=== PATIENT | female | born 1960 ===

== ENCOUNTER 2016-12-01 13:25 | Emergency (ER) | payer OTHER ==
[2016-12-01 13:39] VITALS: BP 137/63
--- NOTE | 2016-12-01 13:52 | UC ---
Back Pain HPI - HPI Summary HPI Summary: ONE DAY HISTORY OF LEFT FLANK PAIN. HAD UTI TREATED WITH ANTIBIOTICS 1.5 WEEKS AGO. NO FEVER. NO BLOOD IN URINE. NO HISTORY OF KIDNEY STONES. TOOK AZO THIS MORNING. - History of Current Complaint Chief Complaint: UCSkin Stated Complaint: SOFT TISSUE COMPLAINT Time Seen by Provider: 12/01/16 13:46 Hx Obtained From: Patient Onset/Duration: Gradual Onset, Lasting Hours, Still Present Timing: Intermittent Severity Initially: Moderate Severity Currently: Moderate Character: Aching, Spasmodic Associated Signs And Symptoms: Negative: Fever, Bladder Incontinence, Bowel Incontinence, Pain with Weight Bearing - Risk Factors AAA Risk Factors: Negative TAD Risk Factors: Negative Cauda Equina Risk Factors: Negative Epidural Abscess Risk Factors: Negative - Allergies/Home Medications Allergies/Adverse Reactions: Allergies Allergy/AdvReac Type Severity Reaction Status Date / Time Penicillins [PCN] Allergy Swelling Verified 12/01/16 13:40 Sulfa Antibiotics Allergy Unknown Verified 12/01/16 13:40 Reaction Details Home Medications: Home Medications Amlodipine Besylate [Norvasc 2.5 mg tab] 2.5 mg PO DAILY 12/01/16 [History Confirmed 12/01/16] Dulaglutide [Trulicity] 0.75 mg SC 12/01/16 [History] Insulin Glargine (Nf) [Toujeo Solostar Pen (NF)] 36 unit SC DAILY 12/01/16 [ History Confirmed 12/01/16] Losartan Potassium 25 mg PO 12/01/16 [History] Metformin HCl [Fortamet] 1,000 mg PO 12/01/16 [History] Oxycodone TAB(NF) [Oxycodone HCl 10 MG] 10 mg PO Q6H PRN 12/01/16 [History Confirmed 12/01/16] oxyCODONE SR TAB(*) [Oxycontin 10 mg (*)] 10 mg PO BID 12/01/16 [History Confirmed 12/01/16] PMH/Surg Hx/FS Hx/Imm Hx Previously Healthy: Yes - Surgical History Surgical History: Yes Surgery Procedure, Year, and Place: ULNAR DECOMPRESSION AND TRANSPOSITION AT [facility] , HYSTERECTOMY, TONSILS - Family History Known Family History: Negative: Renal Disease - Social History Occupation: Employed Full-time Lives: With Family Alcohol Use: None Substance Use Type: None Smoking Status (MU): Never Smoked Tobacco Review of Systems Constitutional: Negative Skin: Negative Eyes: Negative ENT: Negative Respiratory: Negative Cardiovascular: Negative Gastrointestinal: Negative Genitourinary: Dysuria, Urgency Motor: Negative Neurovascular: Negative Musculoskeletal: Other: - LEFT FLANK PAIN Neurological: Negative Psychological: Negative All Other Systems Reviewed And Are Negative: Yes Physical Exam Triage Information Reviewed: Yes Appearance: Well-Appearing, No Pain Distress, Well-Nourished Vital Signs: Initial Vital Signs Temp 97.6 F 12/01/16 13:35 Pulse 77 12/01/16 13:35 Resp 18 12/01/16 13:35 BP 137/63 12/01/16 13:35 Pulse Ox 100 12/01/16 13:35 Vital Signs Reviewed: Yes Eye Exam: Normal ENT Exam: Normal ENT: Positive: Normal ENT inspection, Hearing grossly normal, Pharynx normal Dental Exam: Normal Neck exam: Normal Neck: Positive: Supple, Nontender Respiratory Exam: Normal Respiratory: Positive: Chest non-tender, Lungs clear, Normal breath sounds, No respiratory distress Cardiovascular Exam: Normal Cardiovascular: Positive: RRR, No Murmur, Pulses Normal Abdomen Description: Positive: Nontender, No Organomegaly, Soft, CVA Tenderness (L) Musculoskeletal Exam: Normal Musculoskeletal: Positive: Strength Intact Neurological Exam: Normal Psychological Exam: Normal Skin Exam: Normal Back Pain Course/Dx - Course Course Of Treatment: PATIENT ELECTED TO GO TO EMERGENCY DEPARTMENT FOR EVALUATION OF LEFT FLANK PAIN. REFUSED AMBULENCE, PREFERS TO GO BY PRIVATE CAR. - Differential Dx/Diagnosis Differential Diagnosis/HQI/PQRI: Renal Colic, Strain, Sprain Provider Diagnoses: LEFT FLANK PAIN - Physician Notifications Instructed by Provider To: Will See In ED Discharge - Discharge Plan Condition: Stable Disposition: HOME
[2016-12-01] MEDS ORDERED: Tetan/Diph/Pertus SYR(Tdap)* 0.5 ML SYR(BOOSTRIX) use SYR IM ONE (14:17)
--- NOTE | 2016-12-01 14:23 | UC ---
Skin Complaint HPI - HPI Summary HPI Summary: FOUR DAYS OF LEFT LOWER LIP PAIN SWELLING AND DISCHARGE. HAS BEEN USING ABREVA BUT CONDITION SEEMS TO BE GETTING WORSE. - History of Current Complaint Chief Complaint: UCSkin Time Seen by Provider: 12/01/16 13:46 Stated Complaint: SOFT TISSUE COMPLAINT Hx Obtained From: Patient Onset/Duration: Gradual Onset, Lasting Days, Still Present Skin Exposure Onset/Duration: Days Ago Onset Severity: Mild Current Severity: Moderate Location: Discrete - LEFT INFERIOR LIP Character: Swelling, Redness, Raised, Painful Aggravating: Touch Alleviating: Nothing Associated Signs & Symptoms: Positive: Drainage, Tenderness, Red Streaks. Negative: Nausea, Vomiting, Fever, Chills, Cough, Hoarseness, Throat Tightening , Rash Related History: Possible Reaction to: Environmental Exposure - Allergy/Home Medications Allergies/Adverse Reactions: Allergies Allergy/AdvReac Type Severity Reaction Status Date / Time Penicillins [PCN] Allergy Swelling Verified 12/01/16 13:40 Sulfa Antibiotics Allergy Unknown Verified 12/01/16 13:40 Reaction Details Home Medications: Home Medications Amlodipine Besylate [Norvasc 2.5 mg tab] 2.5 mg PO DAILY 12/01/16 [History Confirmed 12/01/16] Dulaglutide [Trulicity] 0.75 mg SC 12/01/16 [History] Insulin Glargine (Nf) [Toujeo Solostar Pen (NF)] 36 unit SC DAILY 12/01/16 [ History Confirmed 12/01/16] Losartan Potassium 25 mg PO 12/01/16 [History] Metformin HCl [Fortamet] 1,000 mg PO 12/01/16 [History] Oxycodone TAB(NF) [Oxycodone HCl 10 MG] 10 mg PO Q6H PRN 12/01/16 [History Confirmed 12/01/16] oxyCODONE SR TAB(*) [Oxycontin 10 mg (*)] 10 mg PO BID 12/01/16 [History Confirmed 12/01/16] Review of Systems Constitutional: Negative Skin: Rash - ABSCESS LEFT INFERIOR LIP Eyes: Negative ENT: Negative Respiratory: Negative Cardiovascular: Negative Gastrointestinal: Negative Genitourinary: Negative Motor: Negative Neurovascular: Negative Musculoskeletal: Negative Neurological: Negative Psychological: Negative All Other Systems Reviewed And Are Negative: Yes PMH/Surg Hx/FS Hx/Imm Hx Previously Healthy: Yes - Surgical History Surgical History: Yes Surgery Procedure, Year, and Place[place] [facility] [place], [place] - Family History Known Family History: Negative: Diabetes, Other - NO MRSA - Social History Occupation: Employed Full-time Lives: With Family Alcohol Use: None Substance Use Type: None Smoking Status (MU): Never Smoked Tobacco Physical Exam Triage Information Reviewed: Yes Appearance: Well-Appearing, No Pain Distress, Well-Nourished Vital Signs: Initial Vital Signs Temp 97.6 F 12/01/16 13:35 Pulse 77 12/01/16 13:35 Resp 18 12/01/16 13:35 BP 137/63 12/01/16 13:35 Pulse Ox 100 12/01/16 13:35 Vital Signs Reviewed: Yes Eye Exam: Normal ENT Exam: Normal ENT: Positive: Normal ENT inspection, Hearing grossly normal, Pharynx normal Dental Exam: Normal Neck exam: Normal Neck: Positive: Supple, Nontender Respiratory Exam: Normal Respiratory: Positive: Chest non-tender, Lungs clear, Normal breath sounds, No respiratory distress Cardiovascular Exam: Normal Cardiovascular: Positive: RRR, No Murmur, Pulses Normal Abdominal Exam: Normal Musculoskeletal Exam: Normal Musculoskeletal: Positive: Strength Intact Neurological Exam: Normal Psychological Exam: Normal Skin: Positive: rashes - DRAINING 0.5 CM X 0.5 CM ABSCESS LEFT INFERIOR LIP WITH CORRESPONDING ERRYTHEMA 3CM AROUND AREA Course/Dx - Differential Diagnoses - Skin Complaint Differential Diagnoses: Abscess, Cellulitis, Impetigo, MRSA, Varicella Zoster - Diagnoses Provider Diagnoses: LEFT INFERIOR LIP ABSCESS/CELLULITIS Discharge - Discharge Plan Condition: Stable Disposition: HOME Prescriptions: DOXYcycline CAP(*) [DOXYcycline 100MG CAP(*)] 100 mg PO BID #20 cap Mupirocin 2% CREAM* [Bactroban 2% CREAM*] 1 applic TOPICAL TID #1 tube Patient Education Materials: Cellulitis (ED), Abscess (ED) Referrals: Judith CARUSO,Juve Kraus [Primary Care Provider] - Images Head: 1 - DRAINING ABSCESS HERE
== END 2016-12-01 14:40 | disposition home or self-care (01) ==
LOC: UCEAST 13:25
DX: K13.0 Diseases of lips (principal); Z23 Encounter for immunization; Z88.0 Allergy status to penicillin; Z88.2 Allergy status to sulfonamides
CPT/HCPCS: 87070; 87077; 87186; 87205; 87640; 87641; 90471; 90715; 96372; 99212; G0463

== ENCOUNTER → 2018-06-10 11:56 | Day surgery (SDC) | payer OTHER ==
[~2018-06-10 11:56] MED LIST: Acetaminophen TAB* 325 MG PO PRN; Buffered Lidocaine 1% SYRIN* 1 ML/SYRINGE INTRADERM ONE; Ketorolac INJ* 30 MG/ML 1 ML VIAL IV PRN; Ketorolac INJ* 30 MG/ML 1 ML VIAL ONE; Lactated Ringers 1000 ML Bag* 1,000 ML IV SCH; Midazolam* 1 MG/ML 2 ML VIAL (2 MG) ONE; Naloxone* 0.4 MG/ML 1 ML VIAL IV PRN; Propofol* 500 MG/50 ML BTL ONE
[2018-06-10 17:47] VITALS: BP 123/71
--- NOTE | 2018-06-10 20:13 | PRO ---
CC: Juve Wong MD * DATE OF PROCEDURE: 06/10/18 - [facility] PROCEDURE: Colonoscopy with biopsy and jumbo biopsy polypectomy. REFERRING PROVIDER: Juve Wong MD. INDICATION: Patient complains of explosive diarrhea in the mornings and fecal incontinence occasionally. MEDICATIONS GIVEN: By Anesthesia. DESCRIPTION OF PROCEDURE: Full disclosure of risks was reviewed with the patient as detailed on the consent form. The patient was placed in the left lateral decubitus position and monitored with continuous pulse oximetry, capnography, interval blood pressure monitoring, and direct observation. After anorectal examination was performed, the adult colonoscope was inserted into the rectum and advanced to the level of the terminal ileum. Complete views of the cecum were obtained including the medial wall between the IC valve and the appendiceal orifice was obtained. Photo-documentation of these landmarks were obtained. Quality of the prep was good. Careful inspection of the colonic mucosa was performed as the scope was withdrawn. Retroflexion was performed in the rectum. Findings and interventions are described below. FINDINGS: Anorectal exam was unremarkable. Sphincter tone was normal. Scope was slowly and carefully advanced to the level of the cecum. Once in the cecum , the terminal ileum was intubated. Ileal mucosa was normal x10 cm. Scope was then withdrawn back into the cecum and then throughout the length of the colon. There was 1 descending polyp (2 mm), which was removed with jumbo biopsy forceps. There were two sigmoid polyps (2 mm each), which were removed with jumbo biopsy forceps. Random biopsies were obtained throughout the colon and rectum to rule out microscopic colitis. Retroflexion in the rectum revealed internal hemorrhoids. Scope was then withdrawn from the patient. The patient tolerated the procedure well and was recovered in the GI recovery area. IMPRESSION: 1. Complete colonoscopy to the terminal ileum. 2. Three diminutive polyps as above. 3. Internal hemorrhoids. FOLLOWUP: 1. Await pathology. Timing of repeat colonoscopy for polyp surveillance to depend on polyp pathology. 2. Encouraged the patient to obtain stool specimens as discussed in clinic. 3. Follow-up in clinic. Thank you very much for this referral. [id number]/CPS #: [id number] PAMELA
== END | disposition home or self-care (01) ==
LOC: OR 11:56
PROVIDERS: ATTEND Internal Medicine Gastroenterology
DX: R19.7 Diarrhea, unspecified (principal); R15.9 Full incontinence of feces; K63.5 Polyp of colon; R63.4 Abnormal weight loss; K64.8 Other hemorrhoids; E11.9 Type 2 diabetes mellitus without complications; Z79.4 Long term (current) use of insulin; E03.9 Hypothyroidism, unspecified; I10 Essential (primary) hypertension; E78.5 Hyperlipidemia, unspecified; K21.9 Gastro-esophageal reflux disease without esophagitis; Z79.84 Long term (current) use of oral hypoglycemic drugs
CPT/HCPCS: 88305; J1885; J2250; J2704